=== PATIENT | female | born 1980 | race Caucasian/White ===

== ENCOUNTER → 2016-12-14 | Outpatient (CLI) | payer OTHER | LOC: BRMIMAGING 11:32 | PROVIDERS: ATTEND Physician Assistant | DX: R10.32 Left lower quadrant pain (principal) | CPT/HCPCS: 76856-PO ==

== ENCOUNTER → 2018-04-25 | Outpatient (CLI) | payer OTHER | LOC: BRMIMAGING 07:51 | PROVIDERS: ATTEND Physician Assistant | DX: K62.89 Other specified diseases of anus and rectum (principal) | CPT/HCPCS: 76705-PO ==